=== PATIENT | female | born 1965 | race Caucasian/White ===

== ENCOUNTER 2017-12-14 09:00 | Outpatient (RCR) ==
--- NOTE | 2017-11-30 15:54 | RS.OPPTEV2 ---
Date of Note: 11/30/17 Visit #: 1 Date of Evaluation: 11/30/17 Payer Source: Insurance Treatment Diagnosis: low back and LE pain History of Condition/Mechanism of Injury:: Ms. Rodriguez reports chronic low back pain for many years. Reports having frequent falls. States she fell approximately 3-4 months ago, which caused increased low back and LE pain. Prior Level of Function.....Patient was independent with: ADL's, Self Care, Caregiving, Ambulation/Mobility, Community Integration/Access Functional Limitations: Sleep, Self Care, ADL's, Reaching, Pushing, Pulling, Lifting, Carrying, Sitting, Standing, Bending, Squatting, Ambulation, Community Access/Integration Current Subjective/complaints:: Patient reports pain into the low back and middle back. Reports current numbness in the mid back region. States she gets radiating pain into the LE's on a daily basis, with sitting, walking, and standing. States she has found nothing to decrease her pain. She had Physical Therapy last year and states it did not help. States the therapy consisted of a lot of stretching. States she has difficulty walking because she has a history of Vertigo and foot pain. She ambulates with a cane for her balance. Reports a history of falls. States she gets very little sleep due to back pain. States it is a chore to even roll over in bed. Medical History Medical History Comments:: Chronic back pain,Fibromyalgia,DDD lumbar spine, Vertigo Surgical History: (X2 ) Surgical History Comments:: Kidney surgeries, right knee surgery, breast reduction Hx Home Medications: list of medications not brought Patient's Goals: Her goal is to get some relief of back and LE pain. Pain Assessment - Pain Description Pain Location: low back and LE pain. Current Pain Intensity: back 3/10, feet 9/10 Worst Pain Intensity: 10/10 Functional Outcome Measure Oswestry LBP: 76 - G Codes & Severity Modifier G Codes & Modifier: NA Source of G Code score: NA Observation - Observation Posture: Forward Head, Rounded Shoulders, Decreased Lumbar Lordosis Gait - Gait Pattern Gait Comments: Patient ambulates with a straight cane and demonstrates decreased knee and hip flexion bilaterally. She deviates from a straight path 3- 4 times when walking through the department. Performs sit <> stand independently. - ROM Lumbar Flexion: Hand reach to feet Sidebending to Left: Reach to Mid-thigh Sidebending to Right: Reach to Mid-thigh Lumbar Spine ROM Limitations: Pain Comments: Lumbar extension causes increased pain in the lumbar and thoracic spine. Lumbar flexion causes discomfort due to tightness in the HS. Bilateral LE AROM is WFL's. - Strength Trunk Rotation: 4- Good- Comments: Hip strength generally 4-/5. Right Quads and HS 4+/5, ankle 4+/5. Left Quads 4/5, HS 4/5, ankle 4/5. - Special Tests Seated Dural Stretch Test: Negative Left, Negative Right Comments: Patient reports increased pain in the lumbar spine or gluteal region with most movement of the LE's or lumbar spine. Palpation Comments:: Patient reports tenderness with palpation along the lumbar spine, sacrum, and SI joints. Also has tenderness with Central PA's to the spinous processes of the lumbar spine. Sensation - Sensation Comments: Reports less sensitivity to light touch along the entire left LE compared to the right LE. Balance - Sitting Balance Static Sitting Balance: Good Dynamic Sitting Balance: Good - Standing Balance Static Standing Balance: Good (-) Dynamic Standing Balance: Good (-) Additional Comments: Additional Comments: SLR bilaterally 50-55 degrees. Interventions - Exercise/Activities/Manual Therapy Exercises/Activities: Patient instructed in hooklying hip flexion and abdominal isometrics/pelvic tilts for HEP. Manual Therapy: Na HOME EXERCISE PROGRAM: hooklying hip flexion and abdominal isometrics/pelvic tilts - Charges Timed Code Treatment Minutes: 0 mins Total Treatment Time: 50 mins Procedures billed for this date of service:: EVAL Medium EVALUATION COMPLEXITY LEVEL EVALUATION COMPLEXITY LEVEL: HISTORY: Medium (chronic LBP, Fibromyalgia, impaired balance), EXAM OF BODY SYSTEMS: Medium, CLINICAL PRESENTATION: Medium, CLINICAL DECISION MAKING: Medium Assessment Assessment: Patient presents to therapy with a diagnosis of Chronic bilateral low back pain with sciatica. She exhibits weakness throughout her trunk and LE' s. Pain in the low back and gluteal region was brought on by most LE and lumbar spine movement, and made it difficult to determine source of pain through Special Tests. She demonstrates the need for strengthening to her trunk and LE's to improve spinal stability and also carry over to improve her balance with ambulation. Patient Education: Education of diagnosis, Body/Joint mechanics, Home Exercise Program, Home Safety, Activity Modification, Education of Plan of Care Rehab Potential: Good Short Term Goals Goal #1: Patient independent and compliant with HEP. Goal to be met by: 12/14/17 Goal #2: Bilateral hip strength 4/5. Goal to be met by: 12/14/17 Goal #3: Trunk strength improved to 4/5. Goal to be met by: 12/14/17 Derivatives Trader Goals Goal #1: Pt knows HEP and to continue ex's to maintain functional level at D/C. Goal to be met by: 01/09/18 Goal #2: Score on Oswestry LBP scale improved to 50. Goal to be met by: 01/09/18 Goal #3: Pt able to sleep 6 hours without interruption from low back pain. Goal to be met by: 01/09/18 Goal #4: Pt to report no radiating LE pain with sitting, standing, and walking. Goal to be met by: 01/09/18 Plan - Treatment to be Provided Procedures: Therapeutic Exercises, Therapeutic Activity, Neuromuscular Rehab, Patient Education Modalities: Electrical Stimulation, Ultrasound/Phonophoresis, Cryotherapy, Hot Packs - Treatment Plan Frequency: 3 X week Duration: 4 weeks ORDER # VISITS AND/OR THROUGH DATE: 01/09/18 - Treatment Code (1) Low back pain Code(s): M54.5 - LOW BACK PAIN Qualifiers: Chronicity: chronic Back pain laterality: unspecified Sciatica presence: unspecified whether sciatica present Qualified Code(s): M54.5 - Low back pain ; G89.29 - Other chronic pain (2) Radiculopathy with lower extremity symptoms Code(s): M54.10 - RADICULOPATHY, SITE UNSPECIFIED Comments: M54.10 (3) Generalized muscle weakness Code(s): M62.81 - MUSCLE WEAKNESS (GENERALIZED) Comments: M62.81 (4) Gait abnormality Code(s): R26.9 - UNSPECIFIED ABNORMALITIES OF GAIT AND MOBILITY Comments: R26.9
--- NOTE | 2017-12-04 11:13 | RS.OPPTDN ---
Subjective Date of Note: 12/04/17 Visit #: 2 Date of Evaluation: 11/30/17 Payer Source: Insurance Treatment Diagnosis: low back and LE pain Current Subjective/complaints:: Patient says she hurts in all positions. She says she has elevated pain due to increased activity too over the weekend. Pain is more to the R LE than L. - Treatment Modality: Electrical Stim Unattended Parameters/Method Applied: IFC @ 12 ma x 20 mins to the lumbar and superior glut region Patient Position: Sitting - Heat/Cryotherapy Treatment: Hot Pack Interventions - Exercise/Activities/Manual Therapy Exercises/Activities: Patient receives gentle passive stretches supine bilaterally: SKTC, HS, Piriformis, Fig 4, and lower trunk rotation x 2. Began pillow squeeze and isometric hip abd x 10. Patient received education on her diagnosis, body mechanics, HEP. Total minutes of Exercise: 17 Manual Therapy: Na HOME EXERCISE PROGRAM: hooklying hip flexion and abdominal isometrics/pelvic tilts - Charges Timed Code Treatment Minutes: 17 Total Treatment Time: 37 Procedures billed for this date of service:: hp, estim (un), ex Assessment: Patient has mod to severe pain constantly to the R low back and R leg and did increase from increased housework over the weekend. She uses a cane due to vertigo so she switches between UE's to gain balance. She demo slight unsteady gait in dept after treatment leaning to the R at times, but regains with SC. EX's did increase soreness especially to the R. Patient expresses feeling relief of pain through estim today. Patient Education: Education of diagnosis, Body/Joint mechanics, Home Exercise Program, Education of Plan of Care Short Term Goals Goal #1: Patient independent and compliant with HEP. Goal to be met by: 12/14/17 Goal #2: Bilateral hip strength 4/5. Goal to be met by: 12/14/17 Goal #3: Trunk strength improved to 4/5. Goal to be met by: 12/14/17 Intermediate Goals Goal #1: Pt knows HEP and to continue ex's to maintain functional level at D/C. Goal to be met by: 01/09/18 Goal #2: Score on Oswestry LBP scale improved to 50. Goal to be met by: 01/09/18 Goal #3: Pt able to sleep 6 hours without interruption from low back pain. Goal to be met by: 01/09/18 Goal #4: Pt to report no radiating LE pain with sitting, standing, and walking. Goal to be met by: 01/09/18 Plan PLAN OF CARE EXPIRES ON:: 01/09/18 ORDER # VISITS AND/OR THROUGH DATE: 01/09/18 PLAN: Continue TIW for modalities and therex
--- NOTE | 2017-12-06 11:10 | RS.OPPTDN ---
Subjective Date of Note: 12/06/17 Visit #: 3 Date of Evaluation: 11/30/17 Payer Source: Insurance Treatment Diagnosis: low back and LE pain Current Subjective/complaints:: Patient says that she received injections yesterday and had elevated pain. She says she has a goat that is ready to give and had to stay and care for it, so she was not able to rest afterwards. Pain Assessment - Pain Description Pain Location: elevated across the low back - Treatment Modality: Electrical Stim Unattended Parameters/Method Applied: IFC @ 18 ma x 20 mins to the lumbar and superior glut region Patient Position: Sitting - Heat/Cryotherapy Treatment: Hot Pack Interventions - Exercise/Activities/Manual Therapy Exercises/Activities: Patient receives gentle passive stretches supine bilaterally: SKTC, HS, Piriformis, Fig 4, and lower trunk rotation x 2. Continued with pillow squeeze and isometric hip abd x 10. Attempted hooklying hip flex (alt), but patient unable to initiate without assistance. Attempted in sitting and patient unable to do so unless she rocks to each side. Patient received education on her diagnosis, body mechanics, HEP. Encouraged her to use ice to her back due to receiving injections yesterday. Total minutes of Exercise: 18 Manual Therapy: Na HOME EXERCISE PROGRAM: hooklying hip flexion and abdominal isometrics/pelvic tilts - Charges Timed Code Treatment Minutes: 18 Total Treatment Time: 40 Procedures billed for this date of service:: hp, estim (un), ex Assessment: Patient with elevated pain due to recent injections and caring for farm animals. She admits improvement with back pain following treatment for about half hour only. She mily stretching better today and demo increased range. Limited active hip flexion in all dir admitting difficulty with stair climbing. Patient Education: Education of diagnosis, Body/Joint mechanics, Home Exercise Program, Education of Plan of Care Patient demonstrates compliance with HEP?: Yes Short Term Goals Goal #1: Patient independent and compliant with HEP. Goal to be met by: 12/14/17 Progress towards Goal:: Progressing Goal #2: Bilateral hip strength 4/5. Goal to be met by: 12/14/17 Goal #3: Trunk strength improved to 4/5. Goal to be met by: 12/14/17 Carpet Mechanic Goals Goal #1: Pt knows HEP and to continue ex's to maintain functional level at D/C. Goal to be met by: 01/09/18 Goal #2: Score on Oswestry LBP scale improved to 50. Goal to be met by: 01/09/18 Goal #3: Pt able to sleep 6 hours without interruption from low back pain. Goal to be met by: 01/09/18 Goal #4: Pt to report no radiating LE pain with sitting, standing, and walking. Goal to be met by: 01/09/18 Plan PLAN OF CARE EXPIRES ON:: 01/09/18 ORDER # VISITS AND/OR THROUGH DATE: 01/09/18 PLAN: Patient to continue modalities and advance therex as able to improve pain and strength.
--- NOTE | 2017-12-11 13:53 | RS.OPPTDN ---
Subjective Date of Note: 12/11/17 Visit #: 4 Date of Evaluation: 11/30/17 Payer Source: Insurance Treatment Diagnosis: low back and LE pain Current Subjective/complaints:: Patient says she always feels good when she is here and when she leaves for a very short time, but it not relieved for significant time yet. She does admit she probably keeps treatment from helping fully because she has so much to do at home and has no one else to rely on. This includes caring for many small farm animals. Pain Assessment - Pain Description Pain Location: -10/23 fairly constant - Treatment Modality: Electrical Stim Unattended Parameters/Method Applied: IFC @ 20 ma to the lumbar paraspinals and superior gluts x 20 mins Patient Position: Sitting - Heat/Cryotherapy Treatment: Hot Pack Interventions - Exercise/Activities/Manual Therapy Exercises/Activities: Patient receives gentle passive stretches supine bilaterally: SKTC, HS, Piriformis, Fig 4, and lower trunk rotation x 3. Continued with pillow squeeze and isometric hip abd x 10. Resumed trying alternate LE lift in hooklying and she was able to perform and enough reps for 2x5 before soreness increased. Reviewed HeP and body mechanics. Total minutes of Exercise: 18 Manual Therapy: Na HOME EXERCISE PROGRAM: hooklying hip flexion and abdominal isometrics/pelvic tilts - Charges Timed Code Treatment Minutes: 18 Total Treatment Time: 38 Procedures billed for this date of service:: hp, estim (un), ex Assessment: Patient has very temporary relief with estim at this time, but is able to mily increased stretching reps and further range. She also is now able to lift the LE's in which she was unable to do so in the past sessions. She demo improved ease with all hooklying activities, so she is progressing, but not as quickly as she prefers. Patient Education: Body/Joint mechanics, Home Exercise Program, Education of Plan of Care Patient demonstrates compliance with HEP?: Yes Short Term Goals Goal #1: Patient independent and compliant with HEP. Goal to be met by: 12/14/17 Progress towards Goal:: Progressing Goal #2: Bilateral hip strength 4/5. Goal to be met by: 12/14/17 Progress towards Goal:: Progressing Goal #3: Trunk strength improved to 4/5. Goal to be met by: 12/14/17 Progress towards Goal:: Progressing Assisted Goals Goal #1: Pt knows HEP and to continue ex's to maintain functional level at D/C. Goal to be met by: 01/09/18 Goal #2: Score on Oswestry LBP scale improved to 50. Goal to be met by: 01/09/18 Goal #3: Pt able to sleep 6 hours without interruption from low back pain. Goal to be met by: 01/09/18 Goal #4: Pt to report no radiating LE pain with sitting, standing, and walking. Goal to be met by: 01/09/18 Plan PLAN OF CARE EXPIRES ON:: 01/09/18 ORDER # VISITS AND/OR THROUGH DATE: 01/09/18 PLAN: Patient to continue for modalities and therex to improve pain and trunk stability.
--- NOTE | 2017-12-13 09:47 | RS.CXNS ---
Date of scheduled appointment: 12/13/17 Type: Cancel Reason for Cancel/NS: Patient left message unable to keep appt. Patient was rescheduled for tomorrow.
--- NOTE | 2017-12-14 10:46 | RS.OPPTDN ---
Subjective Date of Note: 12/14/17 Visit #: 5 Date of Evaluation: 11/30/17 Payer Source: Insurance Treatment Diagnosis: low back and LE pain Current Subjective/complaints:: Patient says pain relief is still lasting into the evening and is still at the lower lumbar paraspinals equally. She c/o increased swelling to the bilateral LE's, particularly the L running to the foot. She admits to eating high sodium food yesterday which may be the cause and caring for her birthing goat. She says she struggles with steps and just raising her legs today due to swelling and pain. Pain Assessment - Pain Description Pain Location: bilateral LE's more so to the L, low back - Treatment Modality: Electrical Stim Unattended Parameters/Method Applied: Hivolt 4 large pads controlled horizontally to the bilateral lumbar paraspinals and SI joint region @ 245-270 pk volts x 20 mins Patient Position: Sitting - Heat/Cryotherapy Treatment: Hot Pack Interventions - Exercise/Activities/Manual Therapy Exercises/Activities: Patient receives gentle passive stretches supine bilaterally: SKTC, HS, Piriformis, Fig 4, and lower trunk rotation x 3. Continued with ball squeeze and isometric hip abd x 10. SAQ no weight, QS, DF with red tband all 2x10 reps. Reviewed HeP and body mechanics. Total minutes of Exercise: 22 Manual Therapy: Na HOME EXERCISE PROGRAM: hooklying hip flexion and abdominal isometrics/pelvic tilts - Objective Findings Observations,measurements,etc.: Notable swelling to the L LE compared to R extending to the foot. - Charges Timed Code Treatment Minutes: 22 Total Treatment Time: 42 Procedures billed for this date of service:: hp, estim (un), ex Assessment: Patient continues with moderate to severe back pain which she also has new c/o's increase in swelling to bilateral LE's with focus to the L. She is only have relief that lasts into the evening of the session date, but this is more than she had at the first week of PT. She mily added exercises well, but unable to perform LE lift due to heaviness in her LE's. She demo increased difficulty with supine to sit and sit to stand and presently uses straight cane. Patient Education: Education of diagnosis, Body/Joint mechanics, Home Exercise Program, Education of Plan of Care Patient demonstrates compliance with HEP?: Yes (as able) Short Term Goals Goal #1: Patient independent and compliant with HEP. Goal to be met by: 12/14/17 Progress towards Goal:: Progressing Goal #2: Bilateral hip strength 4/5. Goal to be met by: 12/14/17 Progress towards Goal:: Progressing Goal #3: Trunk strength improved to 4/5. Goal to be met by: 12/14/17 Progress towards Goal:: Progressing Nursing Home Goals Goal #1: Pt knows HEP and to continue ex's to maintain functional level at D/C. Goal to be met by: 01/09/18 Goal #2: Score on Oswestry LBP scale improved to 50. Goal to be met by: 01/09/18 Goal #3: Pt able to sleep 6 hours without interruption from low back pain. Goal to be met by: 01/09/18 Goal #4: Pt to report no radiating LE pain with sitting, standing, and walking. Goal to be met by: 01/09/18 Plan PLAN OF CARE EXPIRES ON:: 01/09/18 ORDER # VISITS AND/OR THROUGH DATE: 01/09/18 PLAN: Continue next week, then reassess for further need.
== END 2017-12-14 23:59 ==
PROVIDERS: ATTEND Family Medicine
DX: M54.42 Lumbago with sciatica, left side (principal); M54.41 Lumbago with sciatica, right side; G89.29 Other chronic pain; M54.10 Radiculopathy, site unspecified; M62.81 Muscle weakness (generalized); R26.9 Unspecified abnormalities of gait and mobility

== ENCOUNTER 2018-01-01 09:00 | Outpatient (RCR) ==
--- NOTE | 2017-12-21 11:40 | RS.OPPTDN ---
Subjective Date of Note: 12/21/17 Visit #: 6 Date of Evaluation: 11/30/17 Payer Source: Insurance Treatment Diagnosis: low back and LE pain Current Subjective/complaints:: Patient says she received injections 2 days ago and a oral steroid for her continued back pain. She says she is still hurting despite these treatments. She says that she was attempting to run after her guinea that had gotten lose and could have strained her back that way as well. She c/o not being able to place weight on her legs possibly due to swelling in both legs. - Treatment Modality: Electrical Stim Unattended Parameters/Method Applied: IFC @ 32 ma x 20 mins to the lumbar paraspinals Patient Position: Sitting - Heat/Cryotherapy Treatment: Hot Pack Interventions - Exercise/Activities/Manual Therapy Exercises/Activities: Patient receives gentle passive stretches supine bilaterally: SKTC, HS, Piriformis, Fig 4, and lower trunk rotation x 3. Continued with ball squeeze and isometric hip abd x 10. SAQ 1# each, QS, DF with red tband all 2x10 reps. Reviewed HeP and body mechanics. Total minutes of Exercise: 20 Manual Therapy: Na HOME EXERCISE PROGRAM: hooklying hip flexion and abdominal isometrics/pelvic tilts - Charges Timed Code Treatment Minutes: 20 Total Treatment Time: 40 Procedures billed for this date of service:: hp, estim (un), ex Assessment: Patient with elevated back pain and swelling to bilateral LE's to feet. She expresses relief with modalities today and appeared to have improved ease of performing exercises compared to last session. She is able to now use resistance with SAQ now. Patient Education: Education of diagnosis, Home Exercise Program Short Term Goals Goal #1: Patient independent and compliant with HEP. Goal to be met by: 12/14/17 Progress towards Goal:: Progressing Goal #2: Bilateral hip strength 4/5. Goal to be met by: 12/14/17 Progress towards Goal:: Progressing Goal #3: Trunk strength improved to 4/5. Goal to be met by: 12/14/17 Progress towards Goal:: Progressing Tool Crib Supervisor Goals Goal #1: Pt knows HEP and to continue ex's to maintain functional level at D/C. Goal to be met by: 01/09/18 Goal #2: Score on Oswestry LBP scale improved to 50. Goal to be met by: 01/09/18 Goal #3: Pt able to sleep 6 hours without interruption from low back pain. Goal to be met by: 01/09/18 Goal #4: Pt to report no radiating LE pain with sitting, standing, and walking. Goal to be met by: 01/09/18 Plan PLAN OF CARE EXPIRES ON:: 01/09/18 ORDER # VISITS AND/OR THROUGH DATE: 01/09/18 PLAN: Patient to continue BIW next week
--- NOTE | 2017-12-25 10:22 | RS.CXNS ---
Date of scheduled appointment: 12/25/17 Type: Cancel Reason for Cancel/NS: patient stuck in [place] with at MD office
--- NOTE | 2017-12-26 13:15 | RS.OPPTDN ---
Subjective Date of Note: 12/26/17 Visit #: 9 Date of Evaluation: 11/30/17 Payer Source: Insurance Treatment Diagnosis: low back and LE pain Current Subjective/complaints:: Patient says she is not longer hurting at rest, but remains active with yardwork and keeping care of her farm animals. She points to pain along her spine at her bra strap and L3/L4. - Treatment Modality: Electrical Stim Unattended Parameters/Method Applied: IFC @ mid thoracic to mid lumbar paraspinals using 4 large pads @ 17ma Patient Position: Sitting - Heat/Cryotherapy Treatment: Hot Pack Interventions - Exercise/Activities/Manual Therapy Exercises/Activities: Patient receives gentle passive stretches supine bilaterally: SKTC, HS, Piriformis, Fig 4, and lower trunk rotation x 3. Continued with ball squeeze and isometric hip abd x 10. SAQ 1# each, QS, DF with red tband all 2x10 reps. Alternate LE lift in hooklying x 8. Reviewed HeP and body mechanics. Total minutes of Exercise: 20 Manual Therapy: Na HOME EXERCISE PROGRAM: hooklying hip flexion and abdominal isometrics/pelvic tilts - Charges Timed Code Treatment Minutes: 20 Total Treatment Time: 40 Procedures billed for this date of service:: hp, estim (un), ex Assessment: Patient now experiencing no pain at rest, but remains with moderate to severe pain with activities. Specifically, she is having the most trouble with sweeping and vacuuming. She must care for her adult and baby goats which does elevate her symptoms, but has no other option to do so. Discussed possibly using OTC TENS type unit during these activities to make it easier for her to tolerate. Encouraged her to speak with her MD about this option. We discussed body mechanics pertaining to household tasks and trying to use them when able to not elevate her pain. Patient Education: Body/Joint mechanics, Activity Modification Patient demonstrates compliance with HEP?: Yes Short Term Goals Goal #1: Patient independent and compliant with HEP. Goal to be met by: 12/14/17 Progress towards Goal:: Progressing Goal #2: Bilateral hip strength 4/5. Goal to be met by: 12/14/17 Progress towards Goal:: Progressing Goal #3: Trunk strength improved to 4/5. Goal to be met by: 12/14/17 Progress towards Goal:: Progressing [employer] Goals Goal #1: Pt knows HEP and to continue ex's to maintain functional level at D/C. Goal to be met by: 01/09/18 Progress towards goal: Progressing Goal #2: Score on Oswestry LBP scale improved to 50. Goal to be met by: 01/09/18 Comments: reassess next session Goal #3: Pt able to sleep 6 hours without interruption from low back pain. Goal to be met by: 01/09/18 Goal #4: Pt to report no radiating LE pain with sitting, standing, and walking. Goal to be met by: 01/09/18 Plan PLAN OF CARE EXPIRES ON:: 01/09/18 ORDER # VISITS AND/OR THROUGH DATE: 01/09/18 PLAN: Patient has 1 session remaining. Continue modalities and progress therex.
--- NOTE | 2017-12-28 14:18 | RS.OPPTDN ---
Subjective Date of Note: 12/28/17 Visit #: 8 Date of Evaluation: 11/30/17 Payer Source: Insurance Treatment Diagnosis: low back and LE pain Current Subjective/complaints:: Patient states her pain level is much lower today even with mowing yesterday and normal house chores. She says she felt more pain relief after her previous session. - Treatment Modality: Electrical Stim Unattended Parameters/Method Applied: IFC @ 19-21 ma x 20 mins to the mid thoracic paraspinals and upper lumbar paraspinals Patient Position: Sitting - Heat/Cryotherapy Treatment: Hot Pack Interventions - Exercise/Activities/Manual Therapy Exercises/Activities: Patient receives gentle passive stretches supine bilaterally: SKTC, HS, Piriformis, Fig 4, and lower trunk rotation x 3. Continued with ball squeeze and isometric hip abd x 10. SAQ 1 1/2# each, QS, DF progressed to green tband all 2x10 reps. Bridging x 10. Alternate LE lift in hooklying x 8. Reviewed HeP and body mechanics. Total minutes of Exercise: 22 Manual Therapy: Na HOME EXERCISE PROGRAM: hooklying hip flexion and abdominal isometrics/pelvic tilts - Charges Timed Code Treatment Minutes: 22 Total Treatment Time: 42 Procedures billed for this date of service:: hp, estim (un), ex Assessment: Patient with more significant pain reduction since her previous session. She is able to tolerate more exercise today with less c/o's. She demo improved muscle tightness to the mid to low back. Patient Education: Body/Joint mechanics Patient demonstrates compliance with HEP?: Yes Short Term Goals Goal #1: Patient independent and compliant with HEP. Goal to be met by: 12/14/17 Progress towards Goal:: Progressing Goal #2: Bilateral hip strength 4/5. Goal to be met by: 12/14/17 Progress towards Goal:: Partially Met Goal #3: Trunk strength improved to 4/5. Goal to be met by: 12/14/17 Progress towards Goal:: Partially Met [employer] Goals Goal #1: Pt knows HEP and to continue ex's to maintain functional level at D/C. Goal to be met by: 01/09/18 Progress towards goal: Progressing Goal #2: Score on Oswestry LBP scale improved to 50. Goal to be met by: 01/09/18 Goal #3: Pt able to sleep 6 hours without interruption from low back pain. Goal to be met by: 01/09/18 Goal #4: Pt to report no radiating LE pain with sitting, standing, and walking. Goal to be met by: 01/09/18 Plan PLAN OF CARE EXPIRES ON:: 01/09/18 ORDER # VISITS AND/OR THROUGH DATE: 01/09/18 PLAN: Patient to continue x 1-2 more sessions to advance strengthening to trunk and LEs.
--- NOTE | 2018-01-01 11:45 | RS.OPPTDN ---
Subjective Date of Note: 01/01/18 Visit #: 9 Date of Evaluation: 11/30/17 Payer Source: Insurance Treatment Diagnosis: low back and LE pain Current Subjective/complaints:: Patient c/o increased pain today to her R side of mid to low back. She reports she has not done anything different to cause this elevation. She recalls it increased while lifting a bucket of feed, which she does daily and has no other way to avoid it. She says it is normally not heavy, but she is now having pain to the upper back as well. She is emotional and repeatedly apologizes for this elevation in pain. C/o nausea and nearly cancelled her appointment as a result. Pain Assessment - Pain Description Pain Location: Pain at the mid to lower back with pain going down both legs to the feet constantly. - Treatment Modality: Electrical Stim Unattended Parameters/Method Applied: IFC with 4 large pads to mid thoracic to lower lumbar paraspinals x 20 mins @ 17-20 ma Patient Position: Sitting - Heat/Cryotherapy Treatment: Hot Pack Interventions - Exercise/Activities/Manual Therapy Exercises/Activities: Patient unable to mily any therex today c/o increased pain/ nausea. She completes Oswestry LBP Scale and receives education on HEP, pain control at home (using heat/ice alternately, good body mechanics when able). Patient was encouraged to discuss OTC TENS with MD when she sees him next. Total minutes of Exercise: 15 Manual Therapy: Na HOME EXERCISE PROGRAM: hooklying hip flexion and abdominal isometrics/pelvic tilts - Objective Findings Observations,measurements,etc.: Oswestry Scale: 38 or 76% impairment (No change from EVAL) with 1 area worsened - Charges Timed Code Treatment Minutes: 15 Total Treatment Time: 35 Procedures billed for this date of service:: hp, estim (un) Assessment: Patient presents with increased back pain with extending up her back now and down both legs to feet constantly. She has only very temporary relief of pain with modalities and no change shown with functional scale. It was recommended for to stop now and contact her MD to possibly see him sooner. She is to receive an injection next week. Patient Education: Education of diagnosis, Body/Joint mechanics, Home Exercise Program, Education of Plan of Care Patient demonstrates compliance with HEP?: Yes (as mily) Short Term Goals Goal #1: Patient independent and compliant with HEP. Goal to be met by: 12/14/17 Progress towards Goal:: Progressing Goal #2: Bilateral hip strength 4/5. Goal to be met by: 12/14/17 Progress towards Goal:: Partially Met Goal #3: Trunk strength improved to 4/5. Goal to be met by: 12/14/17 Progress towards Goal:: Partially Met [employer] Goals Goal #1: Pt knows HEP and to continue ex's to maintain functional level at D/C. Goal to be met by: 01/09/18 Progress towards goal: Progressing Goal #2: Score on Oswestry LBP scale improved to 50. Goal to be met by: 01/09/18 Progress towards goal: No Change Goal #3: Pt able to sleep 6 hours without interruption from low back pain. Goal to be met by: 01/09/18 Progress towards goal: No Change Goal #4: Pt to report no radiating LE pain with sitting, standing, and walking. Goal to be met by: 01/09/18 Progress towards goal: No Change Plan PLAN OF CARE EXPIRES ON:: 01/09/18 ORDER # VISITS AND/OR THROUGH DATE: 01/09/18 PLAN: Patient to discontinue
== END 2018-01-13 23:59 ==
PROVIDERS: ATTEND Family Medicine
DX: M54.42 Lumbago with sciatica, left side (principal); M54.41 Lumbago with sciatica, right side; G89.29 Other chronic pain